=== PATIENT | male | born 1960 | race Caucasian/White ===

== ENCOUNTER → 2016-08-08 | Outpatient (CLI) | payer BC ==
[~2016-08-08] MED LIST: IOHEXOL 300MG/ML 150 ML BTL ONE; SOD CHLORIDE 0.9% 100 ML ONE
[2016-08-08 14:42] LABS: CREATININE 0.96 mg/dl (0.61-1.24)
--- NOTE | 2016-08-08 17:14 | RADRPT ---
PROCEDURE: CT of the abdomen and pelvis CLINICAL INDICATION: Abdominal pain TECHNIQUE: The study was performed utilizing a [employer] 64-slice multidetector CT scanner. Dir ect spiral axial sections were obtained through the abdomen and pelvis with intravenous contrast. Af ter administration of 100cc of Omnipaque-300, postcontrast images were obtained. Coronal and sagitt al reformatted images were performed. The CTDI vol is 7.97 mGy and the DLP is 449.78 mGy-cm. The im ages were reviewed on a PACS workstation. COMPARISON: No prior studies are available for comparison. FINDINGS: CT abdomen: The lung bases are clear. The heart is not enlarged. No pericardial effusion is seen. The liver is normal in size and contour. No focal liver lesions or intrahepatic biliary dilatation is seen. The gallbladder is normal. No common bile duct dilatation is seen. The spleen, pancreas, a nd right adrenal gland are unremarkable in appearance. A left adrenal nodule is seen measuring 1 cm in size. The kidneys are normal in size and contour enhance normally. No evidence of hydronephrosi s or nephrolithiasis is seen. The stomach is unremarkable. Very mild inflammatory changes are suggested in the adjacent mesentery of the left hemicolon. The small and remainder of the large bowel are otherwise unremarkable in co urse and caliber. A normal appendix is identified. No enlarged lymph nodes or fluid collections ar e seen. The aorta is normal in caliber. CT pelvis: No pelvic mass, adenopathy, or focal fluid collection is seen. There is no free fluid. The urinary bladder is normal. The pelvic organs are unremarkable. No osseous lesions are seen. IMPRESSION: Suggestion of very mild colitis in the left hemicolon as described above. RPTAT: HPNM Physician Violette Date Time Electronically viewed and signed by Physician Violette on 08/08/2016 17:14 /
== END | disposition home or self-care (01) ==
LOC: LAB 14:00
PROVIDERS: ATTEND Internal Medicine Gastroenterology
DX: R10.9 Unspecified abdominal pain (principal)
CPT/HCPCS: 74177; 82565; 84520; Q9967